=== PATIENT | male | born 2005 | race Caucasian/White ===

== ENCOUNTER 2024-01-07 08:17 | Emergency (ER) | payer OTHER, SELFPAY ==
--- NOTE | 2024-01-07 08:21 | ED.GENADULT ---
HPI - General Adult General Chief complaint: Extremity Injury, Lower Stated complaint: rt ankle injury Time Seen by Provider: 01/07/24 08:20 Source: patient Mode of arrival: ambulatory Limitations: no limitations History of Present Illness HPI narrative: 18-year-old male patient presents to the [facility] with complaints of right ankle pain. Patient states that yesterday he was carrying some stuff into a dumpster and that his foot gave out and it bent backwards. Patient states he is able to walk on the foot stat as has very mild pain did take some Tylenol yesterday for pain. Denies icing it. Patient states that his parents wanted him to come in to be seen because he had some swelling to the ankle. Patient does arrive using a crutch but states that his parents made him use it does not feel that he needs it. Related Data Home Medications Medication Instructions Recorded Confirmed No Home Medications 01/07/24 01/07/24 Allergies Allergy/AdvReac Type Severity Reaction Status Date / Time No Known Allergies Allergy Mild Verified 01/07/24 08:32 Review of Systems Review of Systems: CONSTITUTIONAL: Denies fever, chills, or sweats. EYES: Denies visual changes, redness, or discharge. ENT: Denies rhinorrhea, congestion, sore throat, or otalgia. CARDIOVASCULAR: Denies chest pain, palpitations, or edema. RESPIRATORY: Denies cough or dyspnea. GASTROINTESTINAL: Denies abdominal pain, nausea, vomiting, or diarrhea. GENITOURINARY: Denies dysuria or hematuria. SKIN: Denies rash or itching. MUSCULOSKELETAL: Denies back pain, joint pain, or myalgia. positive right ankle pain NEUROLOGIC: Denies headache, numbness, or weakness. PSYCHIATRIC: Denies anxiety or depression. PMFSH Comments At the time of my signature I agree with nursing past medical history, surgical, social, and family history. There is no relevant family history pertinent to the presenting complaint. Exam Narrative: GENERAL: Well-appearing, well-nourished, and in no acute distress. HEAD: Normocephalic, atraumatic. EYES: PERRLA and EOMI. ENT: Nares clear, no rhinorrhea or epistaxis. Mucous membranes moist. NECK: Supple. No lymphadenopathy CHEST: Clear to auscultation. No respiratory distress. HEART: Regular rate and rhythm. No murmur heard. Normal peripheral pulses. ABDOMEN: Soft, nontender, nondistended, normal active bowel sounds. EXTREMITIES: Patient is able to bear weight and ambulate without pain. The R ankle is without obvious asymmetry or deformity when compared to the L ankle. Patient can flex/extend, invert/ne. No obvious surface trauma, ecchymosis, mild soft tissue swelling distal to the lateral malleolus. No body tenderness to palpation over the medial or lateral malleolus. Anterior talofibular ligament, posterior talofibular ligament, calcaneofibular ligament nontender and without swelling. No tenderness or deformity of the midfootor over the proximal fifth metatarsal. Good DP and posterior tibial pulses and sensation to light touch normal. Talar tilt test is negative for ligament laxity to valgus or vargus stress. Negative anterior draw. Peroneal nerve is intact with strong eversion and plantar flexion. . SKIN: Warm, dry, no rash. NEURO: No focal deficits. Alert and oriented x3. Course Course Level of Care: Express Care Visit Vital Signs Vital signs: Vital Signs Temperature 36.7 C 01/07/24 08:33 Pulse Rate 67 01/07/24 08:33 Respiratory Rate 16 01/07/24 08:33 Blood Pressure 144/62 H 01/07/24 08:33 Pulse Oximetry 100 01/07/24 08:33 Oxygen Delivery Room Air 01/07/24 08:33 Temperature 36.7 C 01/07/24 08:33 Pulse Rate 67 01/07/24 08:33 Respiratory Rate 16 01/07/24 08:33 Blood Pressure 144/62 H 01/07/24 08:33 Pulse Oximetry 100 01/07/24 08:33 Oxygen Delivery Room Air 01/07/24 08:33 Vital signs reviewed. The patient has been informed that they may have pre-hypertension or Hypertension based
[2024-01-07 08:33] VITALS: BP 144/62; PULSE 67; RESP 16; TEMP 36.7; O2SAT 100
== END 2024-01-07 08:54 | disposition home or self-care (01) ==
PROVIDERS: Emergency Provider Nurse Practitioner Family
DX: S93.401A Sprain of unspecified ligament of right ankle, initial encounter (principal); X50.9XXA Other and unspecified overexertion or strenuous movements or postures, initial encounter
CPT/HCPCS: 99202; G0463